=== PATIENT | female | born 1940 | race Caucasian/White ===

== ENCOUNTER 2023-02-23 14:09 | Outpatient (OUT) | payer OTHER, SELFPAY ==
--- NOTE | 2023-02-23 14:27 | ECG_ITS ---
[facility] Test Date: 2023-02-23 Pat Name: JOSH [id number] Department: Room: - Gender: Female Keg Filler: : 1940 Requested By: DELGADO DAHL Order Number: [id number] Reading MD: IBIS PALAFOX Measurements Intervals [place] Rate: 66 P: 40 WA: 180 QRS: -2 QRSD: 109 T: 13 QT: 389 QTc: 410 Interpretive Statements SINUS RHYTHM Non-Specific T wave inversion in III No previous ECG available for comparison Electronically Signed On 02-26-2023 6:23:30 EST by IBIS PALAFOX
[2023-02-23 15:11] LABS: Basophils Percent Auto 0.6 % (0.2-2.0); Eosinophils Absolute Auto 0.1 10^3/uL (0.0-0.7); Eosinophils Percent Auto 2.8 % (0.9-7.0); Hematocrit 40.1 % (36.0-48.0); Hemoglobin 12.7 g/dL (12.0-16.0); Immature Granulocytes Abs Auto 0.01 10^3/uL (0.00-0.03); Immature Granulocytes Pct Auto 0.2 % (0.0-0.5); Lymphocytes Absolute Auto 1.6 10^3/uL (1.2-3.8); Lymphocytes Percent Auto 32.2 % (20.5-60.0); Mean Corpuscular HGB Conc 31.7 g/dL (29.9-35.2); Mean Corpuscular Volume 94.8 fL (81.0-99.0); Mean Platelet Volume 9.8 fL (9.5-13.5); Monocytes Absolute Auto 0.6 10^3/uL (0.3-0.8); Monocytes Percent Auto 11.8 % (1.7-12.0); Neutrophils Absolute Auto 2.6 10^3/uL (1.4-6.5); Neutrophils Percent Auto 52.4 % (43.0-75.0); Platelet Count 299 10^3/uL (150-450); Red Blood Count 4.23 10^6/uL (4.20-5.40); Red Cell Distribution Width 14.1 % (11.0-15.0)
[2023-02-23 15:20] LABS: Anion Gap 10.3; BUN Creatinine Ratio 23.5; Calcium 9.6 mg/dL (8.5-10.1); Carbon Dioxide 33.4 mmol/L (21.0-32.0); Chloride 99 mmol/L (98-107); Estimated GFR (African America >60 (>=60); Estimated GFR (Non-African Ame 54 (>=60); Glucose 91 mg/dL (74-106); Potassium 3.7 mmol/L (3.5-5.1); Sodium 139 mmol/L (136-145)
[2023-02-23 15:29] LABS: INR 0.97; Partial Thromboplastin Time 29.8 sec (22.3-36.2); Prothrombin Time 10.3 sec (9.0-11.6)
== END 2023-02-23 14:10 | disposition home or self-care (01) ==
LOC: PST 14:10
PROVIDERS: PCP Otolaryngology; Visit Provider Otolaryngology
DX: Z01.810 Encounter for preprocedural cardiovascular examination (principal); Z01.812 Encounter for preprocedural laboratory examination; J32.0 Chronic maxillary sinusitis
CPT/HCPCS: 80048; 85025; 85610; 85730; 93005

== ENCOUNTER 2023-03-03 08:02 | Day surgery (SDC) | payer OTHER, SELFPAY ==
[2023-02-23 15:02] VITALS: BP 151/79; PULSE 72; RESP 20; TEMP 36.3; O2SAT 98; BMI 30.8
[2023-03-03] VITALS (13 sets, daily range): BP systolic 135–160; BP diastolic 58–81; PULSE 72–89; RESP 14–23; TEMP 36.1–36.3; O2SAT 93–98; BMI 30.3
--- NOTE | 2023-03-03 | OP_ITS ---
OPERATION DATE: ??03/03/2023 PRIMARY CARE PHYSICIAN:? Dr. Saldana SURGEON:? Leann Azevedo M.D. PREOPERATIVE DIAGNOSIS:? Chronic right maxillary sinusitis. POSTOPERATIVE DIAGNOSIS:? Chronic right maxillary sinusitis with sinus polyp. PROCEDURE:? Right maxillary antrostomy with removal of tissue. ANESTHESIA:? General endotracheal. COMPLICATIONS:? None. FINDINGS:? Copious thick mucopurulent fluid filling the right maxillary sinus, as well as a large polyp/retention cyst. INDICATIONS:? This 82-year-old woman presented with a long history of chronic right maxillary sinusitis. PROCEDURE:? Patient identified in the holding area and taken back to the OR where she was placed in a supine position.? After induction of general endotracheal anesthesia, the table was turned, the head elevated 20 degrees and the face draped in a sterile fashion.? Afrin soaked pledgets were placed in the right side of the nose and, after waiting adequate time for decongestion, the nose was copiously irrigated.? The nose was then approached with the nasal endoscope and lidocaine 1% with 1:100,000 epinephrine injected into the lateral nasal wall.? After waiting adequate time for hemostasis, the nose was re- approached with the nasal endoscope and s sickle knife was used to incise the uncinate process.? The uncinate process was then removed, and the natural ostium of the maxillary sinus was identified.? The ostium was opened with straight and backbiting forces, as well as a sidebiting forcep, and there was a large amount of thick mucopurulent fluid suctioned from the sinus.? There was then evident a large retention cyst, which was grasped with a 90 degree upbiting ethmoid forcep and removed.? The sinus was then irrigated with normal saline and the patient was awakened and taken to the recovery room in good condition. CAROLIN
[2023-03-03] MEDS: LACTATED RINGER'S SOLUTION 1,000 ML 50 ML IV (08:53)
[2023-03-03] MEDS: LIDOCAINE HCL 1%-EPINEPHRINE 1:100,000 20 ML MDV INJ (09:35)
== END 2023-03-03 10:54 | disposition home or self-care (01) ==
PROVIDERS: Anesthesiology; PCP Family Medicine; Visit Provider Otolaryngology
PROC: (CPT 31267; principal; 2023-03-03 08:50)
DX: J32.0 Chronic maxillary sinusitis (principal); Z79.01 Long term (current) use of anticoagulants; J33.8 Other polyp of sinus; Z87.440 Personal history of urinary (tract) infections; Z87.01 Personal history of pneumonia (recurrent); M54.12 Radiculopathy, cervical region; G35 Multiple sclerosis; I10 Essential (primary) hypertension; E03.9 Hypothyroidism, unspecified; E78.2 Mixed hyperlipidemia; M19.90 Unspecified osteoarthritis, unspecified site; Z90.710 Acquired absence of both cervix and uterus; Z96.651 Presence of right artificial knee joint; J34.2 Deviated nasal septum
CPT/HCPCS: 31267; 36415; 83880; 88305; 88311; J2704